=== PATIENT | female | born 1955 | race Caucasian/White ===

== ENCOUNTER 2017-01-26 15:43 | Emergency (ER) | payer OTHER, BC ==
[~2017-01-26] VITALS: Ht 165.1 cm; Wt 68.0 kg
--- NOTE | 2017-01-26 16:21 | PHYS DOC ---
General Chief Complaint: LOWER EXT PAIN Stated Complaint: RIGHT LOWER LEG PAIN Time Seen by MD: 15:56 Source: patient Exam Limitations: no limitations Problems: History of Present Illness Initial Comments Patient is a 61-year-old female who comes to the ED complaining of right calf pain. Patient is a tobacco smoker and flight coordinator, she says last night while working she felt pain and tightness behind her right calf. She noticed it when she stepped on a seatbelt but denies any trauma or other strenuous activity. Patient has no history of coagulopathy and she's had no chest pain or difficulty breathing. The [employer] she works for sent her to the ED for evaluation and to rule out a blood clot before she can come back to work. No numbness tingling weakness or radiating symptoms, she she describes her symptoms as mild worse with movement and relieved with rest. No pre-arrival treatment. Onset: yesterday Severity: mild Pain/Injury Location: right leg Method of Injury: unknown Modifying Factors: worse with jarring, worse with movement, improves with rest Allergies: Coded Allergies: codeine (Verified Allergy, Intermediate, rash, 01/26/17) ibuprofen (Verified Allergy, Intermediate, rash, 01/26/17) monosodium glutamate (Verified Allergy, Intermediate, 01/26/17) Past Medical History Medical History: other (restless leg, GERD) Surgical History: noncontributory Social History Smoker: cigarettes Alcohol: occasionally Drugs: none Review of Systems Constitutional: denies chills, denies diaphoresis, denies fever, denies malaise EENTM: denies blurred vision, denies double vision, denies ear pain, denies nose pain Respiratory: denies cough, denies shortness of breath, denies wheezing Cardiovascular: denies chest pain, denies palpitations, denies syncope Gastrointestinal: denies abdominal pain, denies diarrhea, denies nausea, denies vomiting Genitourinary: denies dysuria, denies frequency, denies hematuria Musculoskeletal: see HPI Skin: denies dryness, denies lumps, denies rash Psychiatric/Neurological: denies headache, denies numbness, denies paresthesia Physical Exam General Appearance: WD/WN, no apparent distress HEENT: normal ENT inspection Neck: non-tender, supple Cardiovascular/Respiratory: normal peripheral pulses, no respiratory distress Back: no CVA tenderness, no vertebral tenderness Legs: left leg non-tender, bilateral leg normal inspection, bilateral leg normal range of motion, bilateral leg no evidence of injury, right leg soft tissue tenderness, right leg other (tenderness noted in the right calf muscle, no discrete masses appreciated. No erythema or obvious circumferential asymmetry.) Neurologic/Tendon: normal sensation, normal motor functions, normal tendon functions, responds to pain, no evidence tendon injury Psychiatric: alert, oriented x 3 Skin: normal color, warm/dry Orders, Labs, Meds PATIENT: ALEX SEGURA ACCOUNT: [id number] : 1955 LOCATION: ER AGE: 61 SEX: F EXAM STATUS: PRE ER ORD. PHYSICIAN: LAMONT DELVALLE DO REASON: R calf pain PROCEDURE: VENOUS LOWER EXTREMITY RIGHT Right lower extremity venous Doppler ultrasound History: Right calf pain. Comparison: None. Procedure: Color Doppler, spectral Doppler, and grayscale images are obtained with and without compression in the area of the common femoral vein, superficial femoral vein - femoral vein junction, main femoral vein (superficial femoral vein) and popliteal vein. Veins of the proximal calf are also imaged. Findings: There is normal duplex flow, color flow and compressibility of all visualized vein segments. No evidence of deep venous thrombosis is present. Impression: No evidence of right lower extremity deep venous thrombosis. DICTATED AND SIGNED BY: SHANTA MILLARD MD DATE: 01/26/17 2214 CC: CANDIDA ROLDAN MD; LAMONT DELVALLE DO ~ d-dimer < 0.5 Patient was advised to stop smoking Departure Time of Disposition: 17:20 Disposition: HOME, SELF-CARE Diagnosis: calf strain right leg Condition: GOOD Patient Instructions: Muscle Strain, [id number], RICE - Routine Care for Injuries, [id number] Additional Instructions: No blood clots noted. Activity as tolerated. RICE, see handout. OTC tylenol/ibuprofen as needed. Follow up with your doctor in 2 weeks if not better. Return to ED with new or changing symptoms. LAMONT DELVALLE DO Jan 26, 2017 16:21
--- NOTE | 2017-01-26 17:10 | RAD ---
Right lower extremity venous Doppler ultrasound History: Right calf pain. Comparison: None. Procedure: Color Doppler, spectral Doppler, and grayscale images are obtained with and without compression in the area of the common femoral vein, superficial femoral vein - femoral vein junction, main femoral vein (superficial femoral vein) and popliteal vein. Veins of the proximal calf are also imaged. Findings: There is normal duplex flow, color flow and compressibility of all visualized vein segments. No evidence of deep venous thrombosis is present. Impression: No evidence of right lower extremity deep venous thrombosis.
[2017-01-26 17:45] VITALS: BP 122/66
== END 2017-01-26 17:45 | disposition home or self-care (01) ==
LOC: ER 15:43
DX: S86.811A Strain of other muscle(s) and tendon(s) at lower leg level, right leg, initial encounter (principal); K21.9 Gastro-esophageal reflux disease without esophagitis; G25.81 Restless legs syndrome; F17.210 Nicotine dependence, cigarettes, uncomplicated; Z88.6 Allergy status to analgesic agent; Z88.8 Allergy status to other drugs, medicaments and biological substances; W22.8XXA Striking against or struck by other objects, initial encounter; Y93.89 Activity, other specified; Y99.8 Other external cause status; Y92.89 Other specified places as the place of occurrence of the external cause
CPT/HCPCS: 36415; 85379; 93971; 99285-25